=== PATIENT | male | born 1945 | race Caucasian/White ===

== ENCOUNTER 2020-11-14 18:17 | Inpatient (IN) ==
[2020-11-14] MEDS ORDERED: SODIUM CHLORIDE 0.9% 1,000 ML IV STA (20:03)
[2020-11-14] MEDS ORDERED: ACETAMINOPHEN 500 MG TABLET PO STA (20:04)
[2020-11-14] MEDS ORDERED: GLUCAGON 1 MG VIAL IM PRN ×2 (20:20→20:32)
[2020-11-14] MEDS ORDERED: DEXTROSE 50% 25 GM/50 ML VIAL IV PRN ×2 (20:20→20:32)
[2020-11-14] MEDS ORDERED: ERTAPENEM 1,000 MG in SODIUM CHLORIDE 0.9% 100 ML IV SCH (21:00)
[2020-11-14] MEDS: INSULIN LISPRO 100 UNIT/ML SUBCUT SCH (21:00)
[2020-11-14] MEDS ORDERED: hydrALAZINE 20 MG/1 ML VIAL IV PRN (21:10)
[2020-11-14] MEDS ORDERED: METOCLOPRAMIDE 10 MG/2 ML VIAL IV ONE (23:30)
[2020-11-15 05:36] LABS: Basophils % 0.3 % (0.0-0.8); Eosinophils % 0.2 % (0.00-10.9); Hemoglobin 11.4 GM/DL (14.0-18.0); Immature Granulocytes % 0.3 %; Immature Granulocytes Absolute 0.02 #; Lymphocytes # 0.6 10*3/uL (1.4-4.0); Lymphocytes % 10.6 % (21.2-54.2); Mean Corpuscular HGB Conc 32.6 GM/DL (32-36); Mean Corpuscular Volume 93.1 FL (87-102); Mean Platelet Volume 9.1 FL (9.6-12.0); Monocytes % 12.6 % (1.7-12.7); Platelet Count 116 T/CUMM (130-400); Red Blood Count 3.76 MC/CUMM (3.8-5.5); Red Cell Distribution Width 14.6 % (9.3-17.3); White Blood Count 5.7 T/CUMM (4-12)
[2020-11-15 06:13] LABS: Calcium 8.9 MG/DL (8.5-10.1); Osmolality,Calculated 276.7 MOS/KG (273-304); Potassium 3.8 MMOL/L (3.5-5.1); Risk Ratio 1.8; Thyroid Stimulating Hormone 0.715 uIU/ml (0.358-3.74); VLDL CHOLESTEROL 13.2 MG/DL
[2020-11-15 06:15] LABS: Platelet Estimate Adequate
[2020-11-15 06:16] LABS: Anisocytosis 2+; Burr Cells Few
[2020-11-15] MEDS: INSULIN LISPRO 100 UNIT/ML SUBCUT SCH ×2 (08:49→12:01)
[2020-11-15] MEDS ORDERED: LORazepam 1 MG TABLET PO SCH (09:00)
[2020-11-15] MEDS ORDERED: ASPIRIN EC 81 MG TABLET PO SCH (09:00)
[2020-11-15] MEDS ORDERED: busPIRone 15 MG TABLET PO SCH (09:00)
[2020-11-15] MEDS ORDERED: TAMSULOSIN 0.4 MG CAPSULE PO SCH (09:00)
[2020-11-15] MEDS ORDERED: metFORMIN 500 MG TABLET PO SCH (10:00)
[2020-11-15] MEDS ORDERED: SODIUM CHLORIDE 0.9% 1,000 ML IV SCH (10:30)
[2020-11-15] MEDS ORDERED: ENOXAPARIN 40 MG/0.4 ML SYRINGE SUBCUT SCH (10:30)
[2020-11-15 11:50] VITALS: BP 111/57
[2020-11-15] MEDS ORDERED: FOSFOMYCIN 3 GM PACK PO ONE (12:45)
[2020-11-15] MEDS ORDERED: SIMVASTATIN 20 MG TABLET PO SCH (21:00)
== END 2020-11-15 15:23 | disposition home or self-care (01) | DRG 699 ==
LOC: N.ED 18:17 → N.EDINP 20:20 → N.5E 22:28
PROVIDERS: ADMIT Internal Medicine; ATTEND Internal Medicine